=== PATIENT | male | born 1975 | race African-American/Black ===

== ENCOUNTER 2023-10-06 05:41 | Inpatient (IN) ==
[2023-10-06] MEDS: ACETAMINOPHEN 500 MG TAB PO STA (05:59)
[2023-10-06] MEDS: IBUPROFEN 800 MG TAB PO STA (06:00)
[2023-10-06] MEDS: FAMOTIDINE 20MG IV PUSH 20 MG/5 ML SYR IV STA (07:33)
[2023-10-06] MEDS: SODIUM CHLORIDE 0.9% 1,000 ML IV ONE ×2 (07:33→08:42)
[2023-10-06] MEDS: MoRPHine SULFATE 4 MG/ML 1 ML CARP\\VIAL IV STA (07:34)
[2023-10-06 07:39] LABS: Adenovirus PCR Not Detected (NotDetected); Bordetella parapertussis PCR Not Detected (NotDetected); Bordetella pertussis PCR Not Detected (NotDetected); Chlamydia pneumoniae PCR Not Detected (NotDetected); Coronavirus 229E PCR Not Detected (NotDetected); Coronavirus CoV-2 (COVID19)PCR Not Detected (NotDetected); Coronavirus HKU1 PCR Not Detected (NotDetected); Coronavirus NL63 PCR Not Detected (NotDetected); Coronavirus OC43PCR Not Detected (NotDetected); Human Metapneumovirus PCR Not Detected (NotDetected); Influenza A PCR Not Detected (NotDetected); Influenza B PCR Not Detected (NotDetected); Mycoplasma pneumoniae PCR Not Detected (NotDetected); Parainfluenza Virus 1 PCR Not Detected (NotDetected); Parainfluenza Virus 2 PCR Not Detected (NotDetected); Parainfluenza Virus 3 PCR Not Detected (NotDetected); Parainfluenza Virus 4 PCR Not Detected (NotDetected); Respiratory Syncytial VirusPCR Not Detected (NotDetected); Rhinovirus/Enterovirus PCR Not Detected (NotDetected)
--- NOTE | 2023-10-06 07:58 | Emergency Department Note ---
Impression & Plan Fever, Elevated procalcitonin ED Provider Note ED Provider Note NAME: DIXON CONCEPCION AGE:47 SEX: Male : 1975 ARRIVES VIA: Private vehicle INFORMANT: Patient ED PROVIDER(s): Sue Jones DO CHIEF COMPLAINT: Fevers HPI: This is a 47-year-old male presents emergency room due to concern for persistent fevers. Patient was seen and evaluated here yesterday with fever and complaint of dental pain and thought that was possibly the source. Patient does appear temporarily for his job. Patient had labs and imaging performed yesterday and was discharged on Augmentin. He states he has had a total of 3 doses of Augmentin by the time of his return today but was concerned due to persistent fevers. He states he did take Tylenol, did have a dose of Motrin additionally but was concerned due to persistent fevers. Patient does have a history of sarcoidosis but states it is in remission. No other recent sick contacts. Patient does have pain along the jaw bilaterally as he says he has "problems with his back teeth". He states chewing is painful additionally. No other URI symptoms. No vomiting or diarrhea prior to initiation of antibiotics, however he has had decreased appetite and mild diarrhea since starting the Augmentin. PAST MEDICAL HISTORY:See Below PAST SURGICAL HISTORY:See Below FAMILY HISTORY:See Below SOCIAL HISTORY:See Below HOME MEDICATIONS:See Below ALLERGIES:See Below VITALS:See Below PHYSICAL EXAMINATION: GENERAL: alert, well appearing, well nourished, no distress, non-toxic EYE EXAM: normal conjunctiva, PERRL and EOM's grossly intact OROPHARYNX: no exudate, no erythema, lips, buccal mucosa, and tongue normal and mucous membranes are moist NECK: supple, no nuchal rigidity, no adenopathy, non-tender LUNGS: Clear to auscultation. Normal chest wall mechanics, no w/r/r HEART: no murmurs, S1 normal and S2 normal ABDOMEN: abdomen soft, non-tender, normo-active bowel sounds, no masses, no rebound or guarding. SKIN: no rashes, petechiae, orbruising UPPER EXTREMITIES: upper extremities are grossly normal. FROM, nml pulses b/l. LOWER EXTREMITIES: No pitting edema. FROM, nml pulses b/l. NEURO EXAM: Normal sensorium, cranial nerves II-XII grossly intact, normal speech, no facial droop,nogross weakness of arms, no gross weakness of legs. Gross sensation intact. No ataxia. Vital Signs: reviewed and remarkable Differential Diagnosis: Dental abscess, osteomyelitis, failure of outpatient treatment, tickborne illness, dehydration, TYRELL, medication ADR, PE, viral syndrome, as well as others were considered MEDICAL DECISION MAKING: This is a 47-year-old male who presents to the emergency room due to concern for persistent fevers despite recent initiation of Augmentin for presumed dental infection. Patient well-appearing at bedside. He was noted to be febrile and tachycardic on arrival. He was given Tylenol and ibuprofen initially and a repeat respiratory viral swab performed. This was all done prior to my arrival and evaluation. After my exam at bedside, labs drawn and sent, IV established, patient given IV fluids. Repeat BioFire reassuring. Patient's labs do show elevated creatinine, this was present yesterday as well. Patient denies any prior history of kidney problems. Patient does have a history of sarcoid but states he has been in remission. Patient noted to have decreased leukocytosis today compared to yesterday however procalcitonin elevated. I did review pulmonary blood cultures from his initial visit which were negative at this point also. Patient was well-appearing throughout however given unusual symptoms, and recent travel, patient sent for CT angiography of the chest following elevated D-dimer. This was reassuring also. Case discussed with [facility] hospitalist team for additional evaluation and management given concern for fever elevation, increasing procalcitonin, and risks of other concurrent infection. Consultation(s): 1154: Discussed with Dr. Hughes, [facility] hospitalist team, for additional evaluation and management. ER Treatment Provided: See below Diagnostics Interpreted By Me: -Cardiac Monitoring: An order was placed for continuous cardiac monitoring. The monitor shows a rate of 90 with normal sinus rhythm. -Laboratory studies: As stated above and show below. -Imaging studies: CTA chest - no large PE Triage Nursing Note Reviewed Prior/Outside Records Reviewed -CT face reviewed Past Med/Surg History Medical History Sarcoidosis Social History Smoking Status: Never smoker Preferred Language: Sri Lankan Feels Safe at Home: Yes Allergies Allergies Allergy/AdvReac Type Severity Reaction Status Date / Time No Known Allergies Allergy Unverified 10/05/23 03:19 Home Meds Home Medications Medication Instructions Recorded Confirmed Motrin See Rx Instructions .Route 10/06/23 10/06/23 .COMPLEX PRN pain/fever Tylenol See Rx Instructions .Route 10/06/23 10/06/23 .COMPLEX PRN pain/fever carvedilol 25 mg tablet 25 mg PO BID 10/06/23 10/06/23 ergocalciferol (vitamin D2) 1 cap PO WK 10/06/23 10/06/23 fenofibrate 54 mg tablet 54 mg PO BID 10/06/23 10/06/23 hydralazine 25 mg tablet 25 mg PO TID 10/06/23 10/06/23 nifedipine 90 mg tablet,extended 90 mg PO DAILY 10/06/23 10/06/23 release 24 hr potassium citrate 10 mEq (1,080 1,080 mg PO BID 10/06/23 10/06/23 mg) tablet,extended release Previous Rx's Medication Instructions Recorded amoxicillin 875 mg-potassium 1 tab PO BID 7 days #14 tabs 10/05/23 clavulanate 125 mg tablet Results & Data (ED) Vital Signs Vital Signs - 24 hr 10/06/23 05:45 10/06/23 07:50 10/06/23 07:51 Temperature 39.5 C H 37.6 C Temperature Source Oral Oral Pulse Rate 113 H Pulse Rate [Left] 92 H Respiratory Rate 22 18 Respiratory Effort / Characteristics Non-Labored Respiratory Depth Normal Normal Respiratory Pattern Regular Blood Pressure 130/85 Blood Pressure [Left Arm] 122/70 Blood Pressure Mean 100 Blood Pressure Mean [Left Arm] 87 Blood Pressure Position Sitting Pulse Oximetry 94 94 Oxygen Delivery Method Room Air Room Air Sepsis Recent Fever Within 48 Hours Yes Sepsis New/Unexplained Change in Mental Status N/A Sepsis Action Taken by Nursing No Action Required 10/06/23 09:00 10/06/23 11:55 Temperature Temperature Source Pulse Rate Pulse Rate [Left] 95 H 89 Respiratory Rate 18 16 Respiratory Effort / Characteristics Respiratory Depth Respiratory Pattern Blood Pressure Blood Pressure [Left Arm] 132/76 109/76 Blood Pressure Mean Blood Pressure Mean [Left Arm] 94 87 Blood Pressure Position Pulse Oximetry 96 99 Oxygen Delivery Method Room Air Room Air Sepsis Recent Fever Within 48 Hours Sepsis New/Unexplained Change in Mental Status Sepsis Action Taken by Nursing Laboratory Data 10/06/23 07:31 10/06/23 07:31 Lab Results 10/06/23 10/06/23 Range/Units 06:03 07:31 WBC 11.49 H (4.8-10.8) K/ul RBC 3.72 L (4.70-6.10) M/uL Hgb 11.3 L (14.0-18.0) g/dl Hct 32.6 L (42.0-52.0) % MCV 87.6 (80.0-100.0) fL MCH 30.4 (25.0-34.0) pg MCHC 34.7 (32.0-36.0) g/dL RDW Std Deviation 46.8 H (36.4-46.3) fL RDW Coeff of Monica 14.6 H (11.5-14.5) % Plt Count 219 (130-400) K/uL MPV 10.5 (9.4-12.4) fL Immature Gran % (Auto) 1.0 % Neut % (Auto) 86.3 % Lymph % (Auto) 3.7 % [place] % (Auto) 8.2 % Eos % (Auto) 0.6 % Baso % (Auto) 0.2 % Neut # (Auto) 9.92 H (1.40-6.50) K/uL Lymph # (Auto) 0.42 L (1.20-3.40) K/uL [place] # (Auto) 0.94 H (0.11-0.59) K/uL Eos # (Auto) 0.07 (0.00-0.50) K/uL Baso # (Auto) 0.02 (0.00-0.20) K/uL Immature Gran # (Auto) 0.12 (0.01-0.20) K/uL D-Dimer 2410 H* (0-500) ug/L FEU Sodium 133 L (136-145) mmol/L Potassium 3.3 L (3.5-5.1) mmol/L Chloride 99 (98-107) mmol/L Carbon Dioxide 21 (21-32) mmol/L Anion Gap 13 H (3-11) BUN 15 (6-23) mg/dl Creatinine 1.79 H (0.6-1.4) mg/dl Est Cr Clr Drug Dosing 67.0 ml/min Est GFR ( Amer) 51.2 ml/min Est GFR (Non-Af Amer) 44.1 ml/min BUN/Creatinine Ratio 8.4 L (10-20) Glucose 130 H (70-99(Fasting)) mg/dl Calcium 9.4 (8.6-10.3) mg/dl Total Bilirubin 0.5 (0.2-1.0) mg/dl AST 83 H (13-39) U/L ALT 52 (7-52) U/L Alkaline Phosphatase 53 (34-104) U/L Total Protein 7.7 (6.0-8.3) gm/dl Albumin 3.7 (3.4-5.0) gm/dl Globulin 4.0 (2.5-4.0) gm/dl Albumin/Globulin Ratio 0.9 (0.9-2) Procalcitonin 3.41 H (0-0.5) ng/ml Adenovirus (PCR) Not Detected (NotDetected) Anaplasma Smear See Comment Babesia Smear See Comment B. pertussis DNA (PCR) Not Detected (NotDetected) B.parapertussis DNA PCR Not Detected (NotDetected) C. pneumoniae DNA (PCR) Not Detected (NotDetected) Coronavirus OC43 (PCR) Not Detected (NotDetected) Coronavirus HKU1 (PCR) Not Detected (NotDetected) Coronavirus 229E (PCR) Not Detected (NotDetected) SARS-CoV-2 (PCR) Not Detected (NotDetected) Coronavirus NL63 (PCR) Not Detected (NotDetected) Human Metapneumovir PCR Not Detected (NotDetected) Influenza Type A (PCR) Not Detected (NotDetected) Influenza Type B (PCR) Not Detected (NotDetected) M. pneumoniae (PCR) Not Detected (NotDetected) Parainfluenza 1 (PCR) Not Detected (NotDetected) Parainfluenza 2 (PCR) Not Detected (NotDetected) Parainfluenza 3 (PCR) Not Detected (NotDetected) Parainfluenza 4 (PCR) Not Detected (NotDetected) RSV (PCR) Not Detected (NotDetected) Entero/Rhino (PCR) Not Detected (NotDetected) Administered Medications Discontinued Medications Acetaminophen (Acetaminophen 500 Mg Tab) 1,000 mg PO NOW STA Stop: 10/06/23 05:57 Last Admin: 10/06/23 05:59 Dose: 1,000 mg Documented By: IDD Famotidine (Pepcid 20mg Iv Push) 20 mg in 5 mls @ 2.5 mls/min IV NOW STA Stop: 10/06/23 07:12 Last Admin: 10/06/23 07:33 Dose: 2.5 mls/min Documented By: AM Sodium Chloride (Nss) 1,000 mls @ 999 mls/hr IV .Q1H1M ONE Stop: 10/06/23 08:11 Last Infusion: 10/06/23 08:35 Dose: Infused Documented By: Admin: 10/06/23 07:33 Dose: 999 mls/hr Documented By: AM Sodium Chloride (Nss) 1,000 mls @ 999 mls/hr IV .Q1H1M ONE Stop: 10/06/23 09:35 Last Infusion: 10/06/23 10:00 Dose: Infused Documented By: Admin: 10/06/23 08:42 Dose: 999 mls/hr Documented By: AM Ibuprofen (Ibuprofen 800 Mg Tab) 800 mg PO NOW STA Stop: 10/06/23 05:57 Last Admin: 10/06/23 06:00 Dose: 800 mg Documented By: IDD Ioversol (Optiray 320 125ml) 117 ml IV ONCE ONE Stop: 10/06/23 10:32 Last Admin: 10/06/23 10:32 Dose: 117 ml Documented By: EDK Morphine Sulfate (Morphine Sulfate 4 Mg/Ml 1 Ml Carp\\Vial) 4 mg IV NOW STA Stop: 10/06/23 07:14 Last Admin: 10/06/23 07:34 Dose: 4 mg Documented By: AM Potassium Chloride (Potassium Chloride Crtab 20 Meq Tabcr) 40 meq PO NOW STA Stop: 10/06/23 12:51 Last Admin: 10/06/23 13:46 Dose: 40 meq Documented By: HEBER Imaging Data Radiologist's Impression: Chest CTA 10/06/23 09:55 CT angio chest PE protocol CLINICAL HISTORY: PE TECHNIQUE: Multidetector row helical CT of the chest was performed with angiographic protocol. Coronal and sagittal reformations were obtained. Coronal and sagittal MIPS were obtained from the axial data set and were submitted for review. Automated dose lowering techniques and/or adjustment according to patient size were utilized for this exam. CT DOSE: 853.01 mGy.cm Comparison: Comparison is made to CT chest 10/05/2023 FINDINGS: Lungs and pleura: Normal. Heart and pericardium: Heart size is normal. No pericardial effusion. Vessels: No evidence of pulmonary embolism. Mediastinum and marcia: Subcentimeter lymph nodes are seen. Chest wall and lower neck: Subcentimeter axillary lymph nodes noted. Abdomen: Unremarkable. Bones: Unremarkable. IMPRESSION: No acute abnormality and in particular no evidence of pulmonary embolus. Axillary lymph nodes are nonspecific and may be reactive. ACT 112: Negative or not required by law. Electronically signed by: See Serna M.D. 10/06/2023 11:00 AM Discharge Plan Visit Data Chief Complaint: Fever Stated Complaint: FEVER ED Provider: Sue Jones Discharge Problem: Fever, Elevated procalcitonin Patient Disposition: Admitted As Inpatient Discharge Instructions Interventions: ED Discharge Assessment Last Done: 10/06/23 14:08
[2023-10-06 08:11] LABS: Basophils # (auto) 0.02 K/uL (0.00-0.20); Basophils % (auto) 0.2 %; Eosinophils # (auto) 0.07 K/uL (0.00-0.50); Eosinophils % (auto) 0.6 %; Hematocrit (blood only) 32.6 % (42.0-52.0); Hemoglobin 11.3 g/dl (14.0-18.0); Immature Granulocytes # (auto) 0.12 K/uL (0.01-0.20); Lymphocytes # (auto) 0.42 K/uL (1.20-3.40); Lymphocytes % (auto) 3.7 %; Mean Corpuscular Hemoglobin 30.4 pg (25.0-34.0); Mean Corpuscular Hgb Conc 34.7 g/dL (32.0-36.0); Mean Corpuscular Volume 87.6 fL (80.0-100.0); Mean Platelet Volume 10.5 fL (9.4-12.4); Monocytes # (auto) 0.94 K/uL (0.11-0.59); Monocytes % (auto) 8.2 %; Neutrophils # (auto) 9.92 K/uL (1.40-6.50); Neutrophils % (auto) 86.3 %; Platelet Count 219 K/uL (130-400); RDW Coefficient of Variation 14.6 % (11.5-14.5); RDW Standard Deviation 46.8 fL (36.4-46.3); Red Blood Count 3.72 M/uL (4.70-6.10); White Blood Count 11.49 K/ul (4.8-10.8)
[2023-10-06 08:25] LABS: Albumin Globulin Ratio 0.9 (0.9-2); Albumin Level 3.7 gm/dl (3.4-5.0); BUN Creatinine Ratio 8.4 (10-20); Bilirubin,Total 0.5 mg/dl (0.2-1.0); Calcium 9.4 mg/dl (8.6-10.3); Est GFR (African American) 51.2 ml/min; Est GFR (Non-African American) 44.1 ml/min; Potassium 3.3 mmol/L (3.5-5.1); Total Protein 7.7 gm/dl (6.0-8.3)
[2023-10-06 10:04] LABS: D Dimer 2410 ug/L FEU (0-500)
[2023-10-06] MEDS: OPTIRAY 320 125ml IV ONE (10:32)
--- NOTE | 2023-10-06 11:01 | CT Scan Report ---
CT angio chest PE protocol CLINICAL HISTORY: PE TECHNIQUE: Multidetector row helical CT of the chest was performed with angiographic protocol. Archer l and sagittal reformations were obtained. Coronal and sagittal MIPS were obtained from the axial jeny a set and were submitted for review. Automated dose lowering techniques and/or adjustment according to patient size were utilized for this exam. CT DOSE: 853.01 mGy.cm Comparison: Comparison is made to CT chest 10/05/2023 FINDINGS: Lungs and pleura: Normal. Heart and pericardium: Heart size is normal. No pericardial effusion. Vessels: No evidence of pulmonary embolism. Mediastinum and marcia: Subcentimeter lymph nodes are seen. Chest wall and lower neck: Subcentimeter axillary lymph nodes noted. Abdomen: Unremarkable. Bones: Unremarkable. IMPRESSION: No acute abnormality and in particular no evidence of pulmonary embolus. Axillary lymph nodes are non specific and may be reactive. ACT 112: Negative or not required by law. Electronically signed by: See Serna M.D. 10/06/2023 11:00 AM
--- NOTE | 2023-10-06 12:08 | History & Physical Report ---
Date of Service October 06, 2023 Assessment & Plan (1) Fever: Plan: Patient has had significantly elevated fevers; good historian and tracks his fever curve. By history he clearly has had rigors over the last 36 hours and continues to have fevers [place] [address].5 by home thermometer. Bio fire is negative Has some chronic dental pain and dental disease. Endorses a dry nonproductive cough about 1 week. Bio fire is negative. Denies GI, symptoms. Patient has not clinically improved on outpatient Augmentin. His leukocytosis has down trended; however procalcitonin has risen Patient has a history of sarcoid reportedly in remission. Sarcoid is not a ssociated with elevated Pro-Donald and his procalcitonin continues to rise now 3.41; and does not show signs of hilar adenopathy on CT Cell differential is neutrophilic predominant CTface shows dental decay and dental caries with periodontal osteolysis with a fractured posterior molar although no abscess. May be due to dental disease however he is not improving on Augmentin although has been on less than 36 hours of treatment. Patient does have occupational risk for fungal and atypical exposures. 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 He is temporarily here from [place] for a few months. Repeat cultures, Fungitell, fungal cultures ordered Mildly elevated AST with no prior liver disease. Tickborne panel including Anaplasma ordered Will continue on Rocephin/Flagyl empirically pending additional results Follow fever curve Tylenol as needed for fever. Will avoid NSAIDs in the setting of TYRELL Patient does have multiple ulcerative lesions on the right inner cheek and tip of the tongue. Has never had cold sores before.Could be aphthous ulcers however high fevers could also be indicative of primary HSV infection although atypical to have leukocytosis/significantly elevated procalcitonin with this. Viral swab sent (2) Dental decay: Plan: As noted above (3) Hypertension: Plan: Continue carvedilol 25 mg twice daily, hydralazine 25 mg 3 times daily, nifedipine 90 mg daily. (4) Hyperlipidemia: Plan: Continue fenofibrate (5) Sarcoidosis: Plan: CTA without evidence of PE. Some axillary adenopathy is present? Reactive Patient does not show evidence of hilar adenopathy. Denies skin swelling, joint swelling/nodules CTA does not show evidence of pulmonary sarcoidosis. Osteolysis of the jaw seen on CT could be related to this; however elevated procalcitonin is not associated with sarcoid Trend CBC, CMP. EDWARD level ordered. EKG pending (6) TYRELL (acute kidney injury): Plan: Patient also with an TYRELL of 1.79, he reports he has had an TYRELL in the past but at his last check his creatinine was normal Plan DVT PPx: Heparin Diet: CODE STATUS: Full History of Present Illness Primary Care Provider: NO PCP Renato is seen at the bedside He reprots he is hwere for work temporarily from [place] Symptoms started with 'just feeling shaky and weak' and more fatigued than normal like he hadnt slept even though he had. Was in the care and 'was just burning up, sweating, soaking rags from wiping my head and face.' and then suddenly felt absolutely freezing and was shaking uncontrollably and big muscle shaking movements, not like shivering but bigger (rigors). Alternating soaking sweats and shivering with fevers and could not sleep. Came to the ER yesterday and was found to have some dental caries on CT, has a history of a cracked tooth on the lower R side, started on Augmentin and was d/lakshmi home. Continue to have documented fevers 100-104*F overnight intermittently. Took his first dose of Augmentin yesterday around 5pm. Recieved first dose of abx while in the ER yesterday morning. Took last dose 9am this morning Still feeling poorly. Alternating tylenol 325mg every few hours with ibuprofen 400mg every few hours. Seems to help, but continues to have fevers. This AM severe shaking chills started again, came back to the ER 99.6-104.5 higher in AM Endorses a little blurry vision with high fever that improves between fever spikes. NO headache, but some head pressure radiation when coughing He endorses a 'slight off and on cough'. This is new in the last week. No sputum production. Denies noticable dyspnea, sometimes a little fatigued/SoB trying to work. Endorses one transient episode of e pitgastric pain but not chest pain. Has been there 3-4. Not worse with exertion. Back pain. LLQ back pain L sided. Feels a lump at L1-L3. Recently also with a second pain going down his leg and toe is now numb. No abdominal pain. Mild nausea with fevers twice, no vomiting but did gag once or twice when coughing. Left leg numbness/tingling worse with piriformis syndrome. No other numbness/tingling other mary some slight intermittent tingling on the dorsal L hand for ~3-4months worse when sleep. Denies rash No sensinsitivity to lighth or sound. 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 Generally coming for an assessment once its found No international travel No history of immune suppression or immune problems. Endorses preDM, sarcoidosis, sleep apnea, HTN Meds: carvedilol 25mg BID, hydralazine 25mg TID, nifedipine 90mg once daily, potassiumcitrate 10meq twice daily, fenofibrate 54mg 2 tablets daily, and ergocalciferol weekly Father had heart disease, DM No tobacco products or vaping. ETOH 3 beers a day.everal consequtive etoh free days this past month, no etoh withdrawal. No recreational drugs NKDA Full Code. Surrogate DM sister Shilpa Allergies Allergy/AdvReac Type Severity Reaction Status Date / Time No Known Allergies Allergy Unverified 10/05/23 03:19 Home Medications Medication Instructions Recorded Confirmed Type amoxicillin 875 mg-potassium 1 tab PO BID 7 days #14 tabs 10/05/23 10/06/23 Rx clavulanate 125 mg tablet Motrin See Rx Instructions .Route 10/06/23 10/06/23 History .COMPLEX PRN pain/fever Tylenol See Rx Instructions .Route 10/06/23 10/06/23 History .COMPLEX PRN pain/fever carvedilol 25 mg tablet 25 mg PO BID 10/06/23 10/06/23 History ergocalciferol (vitamin D2) 1 cap PO WK 10/06/23 10/06/23 History fenofibrate 54 mg tablet 54 mg PO BID 10/06/23 10/06/23 History hydralazine 25 mg tablet 25 mg PO TID 10/06/23 10/06/23 History nifedipine 90 mg tablet,extended 90 mg PO DAILY 10/06/23 10/06/23 History release 24 hr potassium citrate 10 mEq (1,080 1,080 mg PO BID 10/06/23 10/06/23 History mg) tablet,extended release Past Med/Surg History Medical History Sarcoidosis Social History Smoking Status: Never smoker Preferred Language: Kyrgyz Feels Safe at Home: Yes Physical Exam Physical Exam: General: A&Ox3. NAD. Cooperative. HEENT: Atraumatic, normocephalic. Vision and hearing grossly intact. Pupils equal and reactive to light and accommodation. No photo/phono sensitivity. No nuchal rigidity is present. Neck flexion/extension is with full range of motion without stiffness. Right buccal membrane with multiple small ulcerative lesions, few small ulcerative lesions on the right tip of the tongue Pulm: CTAB A&P. -wheezes, -rales, -rhonchi. Symmetrical chest rise. No increased work of breathing. No respiratory distress. Cardiac: RRR, -mrg. Radial pulses intact and symmetrical. Abdominal: Nontender, nondistended, soft. BS present. Extremities: Pediatric Neuropsychologist strength, elbow flexion, hip flexion, ankle dorsiflexion/plantarflexion 5/5 bilaterally without deficit. Sensation of soft touch is intact in hands and feet bilaterally without asymmetry. Back: No midline spinal tenderness. Does have some L1-L3 right paraspinal musculature stiffness. Patient also endorses that palpation of the R piriformis causes numbness and tingling to shoot down his right leg. Results & Data Results & Data Vital Signs (Past 12 Hours) Vital Signs Temp Pulse Pulse Resp BP BP Pulse Ox 10/06/23 11:55 89 16 109/76 99 10/06/23 09:00 95 H 18 132/76 96 10/06/23 07:51 92 H 18 122/70 94 10/06/23 07:50 37.6 C 10/06/23 05:45 39.5 C H 113 H 22 130/85 94 O2 Del Method 10/06/23 11:55 Room Air 10/06/23 09:00 Room Air 10/06/23 07:51 Room Air 10/06/23 07:50 10/06/23 05:45 Room Air PG Care Time/CCT Total # of Minutes Spent Total Time Spent with Patient: Total time spent is greater than 50% in coordination of care (as documented) at patient's floor/unit and/or counseling patient: Coding Level of Care Code 89232 INT INP/OBS CARE 3/75MIN Diagnoses Fever R50.9 Dental decay K02.9 Hypertension I10 Hyperlipidemia E78.5 Sarcoidosis D86.9 TYRELL (acute kidney injury) N17.9
[2023-10-06] MEDS: POTASSIUM CHLORIDE CRTAB 20 MEQ TABCR PO STA (13:46)
[2023-10-06] MEDS ORDERED: ONDANSETRON INJ 2 MG/ML 2 ML VIAL IV PRN (14:28)
[2023-10-06] MEDS ORDERED: POLYETHYLENE (MIRALAX) 17 GM PACK PO PRN (14:28)
[2023-10-06] MEDS: ACETAMINOPHEN 325 MG TAB PO PRN (15:13)
[2023-10-06] MEDS: cefTRIAXone SODIUM 2,000 MG/50 ML BAG IV SCH (16:29)
[2023-10-06] MEDS: metroNIDAZOLE 500 MG/100 ML BAG IV SCH (17:03)
[2023-10-06] MEDS: HEPARIN SOD 5,000 UNIT/0.5 ML VIAL SQ SCH (20:33)
[2023-10-06 21:43] LABS: Appearance Urine Clear (Clear); Bacteria Urine Automated None Seen (None Seen); Bilirubin Urine Negative (Negative); Blood Urine 1+ (Negative); Cast Urine Automated 0-2 /lpf (0-2); Color Urine Yellow; Epithelial Cell Urine Auto 0-2 /hpf (0-2); Glucose Urine UA 3+ (Negative); Ketones Urine Trace (Negative); Leukocyte Esterase Urine Negative (Negative); Nitrite Urine Negative (Negative); Protein Urine 2+ (Negative); Specific Gravity Urine 1.041 (1.000-1.030); Urobilinogen Urine Negative (Negative); WBC Urine Automated 0-5 /hpf (0-5); pH Urine 6.5 (4.5-7.5)
[2023-10-06] MEDS: carvediloL 25 MG TAB PO SCH (22:04)
[2023-10-06] MEDS: hydrALAZINE HCL 25 MG TAB PO SCH (22:04)
[2023-10-06] MEDS: DOXYCYCLINE HYCLATE 100 MG in DEXTROSE 5% MINI-B 100 ML IV SCH (22:28)
[2023-10-07 07:40] LABS: C Reactive Protein 27.53 mg/dl (0-0.5)
[2023-10-07 08:32] LABS: BUN Creatinine Ratio 6.9 (10-20); Calcium 8.9 mg/dl (8.6-10.3); Creatinine Clr Calc Pharmacy 68.9 ml/min; Est GFR (African American) 52.9 ml/min; Est GFR (Non-African American) 45.7 ml/min; Magnesium 1.9 mg/dl (1.7-2.4); Potassium 3.4 mmol/L (3.5-5.1)
[2023-10-07] MEDS: NIFEdipine EXTENDED REL 30 MG TABCR PO SCH (08:36)
[2023-10-07 11:03] LABS: Hematocrit (blood only) 34.3 % (42.0-52.0); Hemoglobin 11.8 g/dl (14.0-18.0); Mean Corpuscular Hemoglobin 29.9 pg (25.0-34.0); Mean Corpuscular Hgb Conc 34.4 g/dL (32.0-36.0); Mean Corpuscular Volume 86.8 fL (80.0-100.0); Mean Platelet Volume 9.9 fL (9.4-12.4); Platelet Count 233 K/uL (130-400); RDW Coefficient of Variation 14.6 % (11.5-14.5); Red Blood Count 3.95 M/uL (4.70-6.10); White Blood Count 8.76 K/ul (4.8-10.8)
[2023-10-07] MEDS: POTASSIUM CHLORIDE CRTAB 20 MEQ TABCR PO STA (11:21)
--- NOTE | 2023-10-07 11:21 | Hospitalist Progress Note ---
Date of Service October 07, 2023 Assessment & Plan (1) Gingivostomatitis: Plan: Herpes, coxsackie virus, adenovirus are 3 typical viruses that cause what he has. The latter 2 viruses do not have any specific treatment. While awaiting HSV PCR testing from the mouth will start acyclovir 400mg TID. Add magic mouthwash q6h swish/spit. Start peridex mouth solution BID, swish/spit. Unfortunately this problem can last 7-10 days or more in some cases. Fevers can sometimes last a prolonged period of time if herpes or coxsackie are present. (2) Fever: Plan: Respiratory BioFire negative Blood cx's from 10/04 and 10/05 remain negative CTA chest without pneumonia U/a not suspicious for UTI Lyme screen negative Anaplasmosis & Babesia smears negative CTface shows dental decay and dental caries with periodontal osteolysis with a fractured posterior molar although no abscess. Remains on IV antibiotics. Change rocephin/flagyl to Unasyn IV. Consider consulting Dr Posey. Patient does have occupational risk for fungal and atypical exposures. 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 He is temporarily here from [place] for a few months. Fungal blood cx was dispatched; fungitell also sent by admitting MD. Does have #1 on physical exam - see #1 for more information. Could fevers be non-infectious (ie - sarcoid)? Does have lymphadenopathy in the axillary region & retroperitoneal on imaging. Consider rheum consultation. Follow cultures Change rocephin/flagyl to unasyn for his teeth Cont doxy for empiric tick-borne coverage (3) Dental decay: Plan: Consider Dr Posey consultation while here (4) Hypertension: Plan: Continue carvedilol 25 mg twice daily, hydralazine 25 mg 3 times daily, nifedipine 90 mg daily (5) Hyperlipidemia: Plan: Continue fenofibrate (6) Sarcoidosis: Plan: CTA without evidence of PE, pneumonia, or hilar lymphadenopathy. Some axillary adenopathy is present - subcm per radiology - Reactive? sarcoid? other? Send 1,25-OH vit D level Again Consider rheum consultation (7) TYRELL (acute kidney injury): Plan: patient with CKD Cr 1.3 in fall 2022, then 1.5 05/19, then 1.7 about 1 month ago progressively worsening renal function etiology? HTN nephrosclerosis? due to active sarcoid? other? hydrate overnight, repeat BMP am CT a/p no contrast - r/o kidney stones, other renal pathology (8) Hypokalemia: Plan: replace PO/IV repeat K in am (9) Chronic radicular low back pain: Plan: left leg L5 or S1 nerve root consider imaging if fevers persist to r/o spinal infection (10) Hyponatremia: Plan: mild likely due to volume depletion/insensible losses in setting of fevers hydrate with isotonic fluids repeat BMP am Plan DVT PPx: Heparin Admission and Anticipated Discharge Date Admission Date: October 06, 2023 Subjective patient continues with high fevers these have been present for several days main complaint is that of difficulty eating/drinking because of numerous mouth & tongue sores he also has several teeth that are broken/decayed/infected denies any rashes did have sarcoid in the early while living in [place] was treated with steroids then, and ultimately went into remission had pulmonary symptoms during his time of treatment, as well as diffuse subcutaneous nodules he denies joint pain/arthralgias denies myalgias he has chronic left-sided low back pain with radicular pain down the entire left leg to the foot the left leg from the left knee down to foot has numbness/tingling no change in his chronic low back pain [facility] labs - early fall 2022 - Cr 1.3 04/2023 - Cr 1.31 August 2023 - Cr 1.7 he had x-rays of his back in August 2023 - DJD seen he mentions vague abdominal pain that has occurred a few times since being sick but no emesis some diarrhea no obvious sick contacts he travels for work and has 2 more months in [place] has been here a few weeks Review of Systems Review of Systems: gen - poor appetite, fevers cv - no chest pain pulm - no cough or dyspnea GI - no vomiting - no dysuria skin - no rashes neuro - no headache Physical Exam Physical Exam: gen - WD, WN, obese, nontoxic, pleasant mouth - numerous oral ulcers of buccal mucosa, on tongue, and on undersurface of bottom lip, MMM; very poor dentition with evidence of periodontal disease, cracked teeth, etc neck - shotty lymphadenopathy b/l, supple heart - RRR, s1 s2, no murmur lungs - CTA b/l abd - soft, no HSM, BS+, NT, ND ext - no edema, pulses 2+ b/l skin - no rash - nothing involving palms/soles neuro - strength 5/5 x 4 exts, DTRs patella 2+ b/l psych - a/o x 3 Results & Data Results & Data Vital Signs (Past 12 Hours) Vital Signs Temp Pulse Resp BP Pulse Ox O2 Del Method 10/07/23 08:38 101 H 18 116/71 96 Room Air 10/07/23 07:16 36.5 C 97 H 16 122/72 96 Room Air 10/07/23 07:15 Room Air 10/07/23 05:36 37.4 C 10/07/23 01:33 38.0 C H Laboratory Results Laboratory Results - last 24 hr 10/06/23 10/06/23 10/06/23 07:31 13:19 13:26 WBC RBC Hgb Hct MCV MCH MCHC RDW Std Deviation RDW Coeff of Monica Plt Count MPV Sodium Potassium Chloride Carbon Dioxide Anion Gap BUN Creatinine Est Cr Clr Drug Dosing Est GFR ( Amer) Est GFR (Non-Af Amer) BUN/Creatinine Ratio Glucose Lactate 1.1 Calcium Magnesium AST Total Creatine Kinase C-Reactive Protein 33.36 H Procalcitonin Urine Color Urine Appearance Urine pH Ur Specific [place] Urine Protein Urine Glucose (UA) Urine Ketones Urine Blood Urine Nitrite Urine Bilirubin Urine Urobilinogen Ur Leukocyte Esterase Urine WBC (Auto) Urine RBC (Auto) U Hyaline Cast (Auto) U Epithel Cells (Auto) Urine Bacteria (Auto) Anaplasma Smear See Comment Babesia Smear See Comment Babesia microti DNA PCR Pending Lyme Disease Screen Negative Herpes Virus Source Pending HSV I DNA PCR Pending HSV II DNA PCR Pending Beta-(1,3)-D-Glucan Pending B-(1,3)-D-Glucan Intrp Pending 10/06/23 10/07/23 10/07/23 20:20 06:43 10:51 WBC 8.76 RBC 3.95 L Hgb 11.8 L Hct 34.3 L MCV 86.8 MCH 29.9 MCHC 34.4 RDW Std Deviation 47.0 H RDW Coeff of Monica 14.6 H Plt Count 233 MPV 9.9 Sodium 133 L Potassium 3.4 L Chloride 101 Carbon Dioxide 18 L Anion Gap 14 H BUN 12 Creatinine 1.74 H Est Cr Clr Drug Dosing 68.9 Est GFR ( Amer) 52.9 Est GFR (Non-Af Amer) 45.7 BUN/Creatinine Ratio 6.9 L Glucose 101 H Lactate Calcium 8.9 Magnesium 1.9 AST 92 H Total Creatine Kinase 341 H C-Reactive Protein 27.53 H Procalcitonin 2.90 H Urine Color Yellow Urine Appearance Clear Urine pH 6.5 Ur Specific [place] 1.041 H Urine Protein 2+ H Urine Glucose (UA) 3+ H Urine Ketones Trace H Urine Blood 1+ H Urine Nitrite Negative Urine Bilirubin Negative Urine Urobilinogen Negative Ur Leukocyte Esterase Negative Urine WBC (Auto) 0-5 Urine RBC (Auto) 6-10 H U Hyaline Cast (Auto) 0-2 U Epithel Cells (Auto) 0-2 Urine Bacteria (Auto) None Seen Anaplasma Smear Babesia Smear Babesia microti DNA PCR Lyme Disease Screen Herpes Virus Source HSV I DNA PCR HSV II DNA PCR Beta-(1,3)-D-Glucan B-(1,3)-D-Glucan Intrp PG Care Time/CCT Total # of Minutes Spent Total Time Spent with Patient: Total time spent is greater than 50% in coordination of care (as documented) at patient's floor/unit and/or counseling patient: Coding Level of Care Code 83115 SUB INP/OBS CARE 3/50MIN Diagnoses Gingivostomatitis K05.10 Fever R50.9 Dental decay K02.9 Hypertension I10 Hyperlipidemia E78.5 Sarcoidosis D86.9 TYRELL (acute kidney injury) N17.9 Hypokalemia E87.6 Chronic radicular low back pain M54.16; G89.29 Hyponatremia E87.1
[2023-10-07 11:31] LABS: Basophils # (auto) 0.04 K/uL (0.00-0.20); Basophils % (auto) 0.5 %; Eosinophils # (auto) 0.21 K/uL (0.00-0.50); Eosinophils % (auto) 2.4 %; Immature Granulocytes # (auto) 0.07 K/uL (0.01-0.20); Immature Granulocytes % (auto) 0.8 %; Lymphocytes # (auto) 0.97 K/uL (1.20-3.40); Lymphocytes % (auto) 11.1 %; Monocytes # (auto) 0.87 K/uL (0.11-0.59); Monocytes % (auto) 9.9 %; Neutrophils % (auto) 75.3 %; Toxic Vacuolation 2+
[2023-10-07] MEDS: PANTOprazole 40 MG TAB PO SCH (12:13)
[2023-10-07] MEDS: NSS + 20MEQ KCL 20 MEQ/1,000 ML BAG IV SCH (12:15)
[2023-10-07] MEDS: FIRST - Mouthwash BLM 119 ML PO SCH (12:15)
[2023-10-07] MEDS: CHLORHEXIDINE GLUCONATE 0.12% 480 ML MT SCH (12:16)
[2023-10-07] MEDS: ACYCLOVIR 400 MG TAB PO SCH (14:33)
--- NOTE | 2023-10-07 20:15 | CT Scan Report ---
CT abd pelvis wo con CLINICAL HISTORY: abd pain, elevated Cr; eval stone, etc TECHNIQUE: Helical axial images of the abdomen and pelvis were obtained. Automated dose lowering tech niques and/or adjustment according to patient size were utilized for this exam. This exam was perfor med without intravenous contrast. CT DOSE: 1422.96 mGy.cm COMPARISON: None available at the time of this dictation. FINDINGS: Lower chest: No acute abnormality. Liver: Hepatic steatosis is noted. Gallbladder and biliary tree: No calcified gallstones. Normal caliber wall. No intra- or extrahepatic biliary ductal dilation. Pancreas: Unremarkable, no focal lesions. Spleen: Unremarkable. Adrenals: Thickening of the left adrenal gland is seen. Kidneys and ureters: Unremarkable. Bladder: Unremarkable. Reproductive organs: Unremarkable. Bowel: The appendix is normal. Lymph nodes Retroperitoneal: Subcentimeter lymph nodes are noted. Pelvic: Unremarkable. Mesenteric: Subcentimeter lymph nodes are noted. Peritoneum: Normal. Vessels: Unremarkable. Abdominal wall: Unremarkable. Bones: Degenerative changes in the visualized spine. IMPRESSION: No acute abnormalities. There are subcentimeter lymph nodes in the retroperitoneum which may be react po. ACT 112: Negative or not required by law. Electronically signed by: See Serna M.D. 10/07/2023 8:13 PM
[2023-10-08 06:56] LABS: Hematocrit (blood only) 31.2 % (42.0-52.0); Hemoglobin 10.7 g/dl (14.0-18.0); Mean Corpuscular Hemoglobin 29.6 pg (25.0-34.0); Mean Corpuscular Hgb Conc 34.3 g/dL (32.0-36.0); Mean Corpuscular Volume 86.4 fL (80.0-100.0); Mean Platelet Volume 10.5 fL (9.4-12.4); Platelet Count 248 K/uL (130-400); RDW Coefficient of Variation 14.6 % (11.5-14.5); RDW Standard Deviation 46.7 fL (36.4-46.3); Red Blood Count 3.61 M/uL (4.70-6.10); White Blood Count 8.69 K/ul (4.8-10.8)
[2023-10-08 07:17] LABS: Basophils # (auto) 0.03 K/uL (0.00-0.20); Basophils % (auto) 0.3 %; Eosinophils # (auto) 0.28 K/uL (0.00-0.50); Eosinophils % (auto) 3.2 %; Immature Granulocytes # (auto) 0.09 K/uL (0.01-0.20); Lymphocytes # (auto) 1.65 K/uL (1.20-3.40); Monocytes # (auto) 1.16 K/uL (0.11-0.59); Monocytes % (auto) 13.3 %; Neutrophils # (auto) 5.48 K/uL (1.40-6.50); Neutrophils % (auto) 63.2 %
[2023-10-08 07:51] LABS: C Reactive Protein 23.64 mg/dl (0-0.5)
[2023-10-08 07:56] LABS: Albumin Globulin Ratio 0.9 (0.9-2); Albumin Level 3.4 gm/dl (3.4-5.0); BUN Creatinine Ratio 7.2 (10-20); Bilirubin,Total 0.4 mg/dl (0.2-1.0); Calcium 8.9 mg/dl (8.6-10.3); Creatinine Clr Calc Pharmacy 78.3 ml/min; Est GFR (African American) 61.8 ml/min; Est GFR (Non-African American) 53.4 ml/min; Potassium 3.4 mmol/L (3.5-5.1); Total Protein 7.4 gm/dl (6.0-8.3)
[2023-10-08] MEDS: AMPICILLIN/SULBACTAM SOD 3,000 MG in SODIUM CHLOR 0.9% MINI-B 100 ML IV SCH (10:47)
[2023-10-08] MEDS: POTASSIUM CHLORIDE CRTAB 20 MEQ TABCR PO STA (10:47)
--- NOTE | 2023-10-08 12:13 | Hospitalist Progress Note ---
Date of Service October 08, 2023 Assessment & Plan (1) Gingivostomatitis: Plan: Herpes, coxsackie virus, adenovirus are 3 typical viruses that cause this; the latter 2 viruses typically cause more so "herpangina" picture. The latter 2 viruses do not have any specific treatment. While awaiting HSV PCR testing from the mouth started acyclovir 400mg TID. Day #2 of such. Cont magic mouthwash q6h swish/spit. Cont peridex mouth solution BID, swish/spit. Unfortunately, regardless of which virus is at play, symptoms/signs can last 7- 10 days or more in some cases. Fevers can sometimes last a prolonged period of time if herpes or coxsackie are present. (2) Fever: Plan: 2nd to #1 above? 2nd to dental infection? 2nd to RLL pneumonia as seen on imaging today? combination of the above issues? Very complex case --- would advise Infectious Diseases Consultation on 10/09/23 Respiratory BioFire negative Blood cx's from 10/04 and 10/05 remain negative CTA chest without pneumonia U/a not suspicious for UTI and urine cx negative Lyme screen negative Anaplasmosis & Babesia smears negative CTface shows dental decay and dental caries with periodontal osteolysis with a fractured posterior molar although no abscess. Remains on IV antibiotics. Consider consulting Dr Posey. Patient does have occupational risk for fungal and atypical exposures. 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 He is temporarily here from [place] for a few months. Fungal blood cx was dispatched; fungitell also sent by admitting MD. Does have #1 on physical exam - see #1 for more information. Could fevers be non-infectious (ie - sarcoid)? Does have lymphadenopathy in the axillary region & retroperitoneal region on imaging. Cont unasyn to cover his teeth; this will also cover the RLL infiltrate seen on today's cxr (see below) Cont doxy for empiric tick-borne coverage but my suspicion for tick-borne illness is very low Sent legionella urine ag as legionella can cause diarrhea, pulmonary symptoms, etc -- but this would not cause #1 I had lengthy conversation today with Dr Guzman from rheumatology We discussed whether to pursue an excisional lymph node biopsy in light of his clinical picture and h/o sarcoid Perhaps he has superimposed active sarcoid on top of #1 and #3 I consulted gen surgery; Dr Arambula reviewed all imaging with radiology. Radiology does not feel that any of the lymph nodes seen on imaging are pathologic; most are subcentimeter in size. Thus deferring on biopsy (3) Dental decay: Plan: Consider Dr Posey consultation while here Continue IV unasyn (4) Hypertension: Plan: Continue carvedilol 25 mg twice daily, hydralazine 25 mg 3 times daily, nifedipine 90 mg daily (5) Hyperlipidemia: Plan: Continue fenofibrate (6) Sarcoidosis: Plan: CTA without evidence of PE, pneumonia, or significant hilar lymphadenopathy. Some axillary adenopathy is present - subcm per radiology Retroperitoneal lymphadenopathy also present Sent 1,25-OH vit D level which is elevated in active sarcoid See #2 for discussion about pursuing a lymph node biopsy This is being deferred (7) TYRELL (acute kidney injury): Plan: patient with CKD Cr 1.3 in fall 2022, then 1.5 05/19, then 1.7 about [facility] ago [facility] progressively worsening renal function etiology? HTN nephrosclerosis? due to active sarcoid? other? hydrated overnight and Cr today improved to 1.5 CT a/p no contrast without kidney stones or other renal pathology stop IV fluids repeat BMP am (8) Hypokalemia: Plan: replace PO/IV repeat K in am (9) Chronic radicular low back pain: Plan: left leg L5 or S1 nerve root consider imaging if fevers persist to r/o spinal infection but having little pain in the actual low back (10) Hyponatremia: Plan: mild but improving likely due to volume depletion/insensible losses in setting of fevers repeat BMP am (11) Abnormal CXR: Plan: ?early RLL pneumonia as seen on today's cxr? unasyn / doxy should cover most typicals & atypicals stable o2 sats consider repeat cxr in 48 hours to reassess (12) C. difficile diarrhea: Plan: gene is positive but toxin is negative although toxin is negative he is having SEVERE, COPIOUS, NUMEROUS liquid stools about 10 in the last 24 hours set up for c. diff with multiple IV abx last 5 days would treat - toxin could be falsely negative stool BioFire negative start vanco 125mg PO QID can add bile acid sequestrant if needed for bulking purposes Plan DVT PPx: Heparin Q12H fiance updated extensively at bedside today extensive discussion held with Dr Guzman from rheum (informal); extensive discussion with Dr Arambula from gen surg multiple bedside visits complex care coordination total care time today about 80 minutes Admission and Anticipated Discharge Date Admission Date: October 06, 2023 Subjective patient reports SEVERE diarrhea - pure liquid stools, at least 8x's overnight, and 1-2 times already today no abd pain has severe fecal urgency no vomiting appetite remains poor and it is hard to eat/drink because of mouth sores the magic mouthwash does help and he is trying to drink as much fluid as possible he now has a mod-severe cough, largely dry started sometime yesterday cont with fevers Review of Systems Review of Systems: gen - "I don't feel bad" but the fevers are very annoying and uncomfortable cv - no chest pain or tightness pulm - no dyspnea or RICHARDS GI - severe diarrhea - no dysuria musculo - no myalgias, no joint effusions skin - still no rash any location Physical Exam Physical Exam: gen - WD, WN, obese, nontoxic; but is coughing significantly today mouth - numerous oral ulcers of buccal mucosa, on tongue, and on undersurface of bottom lip, MMM; tonsils 2-3+ b/l and injected; some ulcers also appear to be present posterior pharynx; very poor dentition with evidence of periodontal disease, multiple cracked & decayed teeth, etc neck - no JVD heart - RRR, s1 s2, no murmur lungs - CTA b/l, no wheeze, no obvious rales; coughing abd - soft, no HSM, BS+, NT, ND ext - no edema, pulses 2+ b/l skin - no rash - still nothing involving palms/soles psych - a/o x 3 Results & Data Results & Data Vital Signs (Past 12 Hours) Vital Signs Temp Pulse Resp BP Pulse Ox O2 Del Method 10/08/23 07:31 37.6 C H 78 13 131/81 98 Room Air 10/08/23 05:16 39.6 C H Laboratory Results Laboratory Results - last 24 hr 10/08/23 10/08/23 06:21 06:21 WBC 8.69 RBC 3.61 L Hgb 10.7 L Hct 31.2 L MCV 86.4 MCH 29.6 MCHC 34.3 RDW Std Deviation 46.7 H RDW Coeff of Monica 14.6 H Plt Count 248 MPV 10.5 Immature Gran % (Auto) 1.0 Neut % (Auto) 63.2 Lymph % (Auto) 19.0 [place] % (Auto) 13.3 Eos % (Auto) 3.2 Baso % (Auto) 0.3 Neut # (Auto) 5.48 Lymph # (Auto) 1.65 [place] # (Auto) 1.16 H Eos # (Auto) 0.28 Baso # (Auto) 0.03 Immature Gran # (Auto) 0.09 Sodium 134 L Potassium 3.4 L Chloride 102 Carbon Dioxide 19 L Anion Gap 13 H BUN 11 Creatinine 1.53 H Est Cr Clr Drug Dosing 78.3 Est GFR ( Amer) 61.8 Est GFR (Non-Af Amer) 53.4 BUN/Creatinine Ratio 7.2 L Glucose 103 H Calcium 8.9 Total Bilirubin 0.4 AST 83 H 82 H ALT 58 H Alkaline Phosphatase 61 C-Reactive Protein 23.64 H Total Protein 7.4 Albumin 3.4 Globulin 4.0 Albumin/Globulin Ratio 0.9 Vit D 1,25-Dihyd Total Pending 1,25 Dihydroxy Vit D2 Pending 1,25 Dihydroxy Vit D3 Pending A. phagocytophilum DNA Pending Diagnostic Findings Microbiology 10/06/23 13:19 Blood Aerobic Blood Culture - Preliminary No growth in Aerobic bottle after 48 hours. 10/06/23 13:19 Blood Anaerobic Blood Culture - Preliminary No growth in Anaerobic bottle after 48 hours. 10/06/23 13:19 Blood Aerobic Blood Culture - Preliminary No growth in Aerobic bottle after 48 hours. 10/06/23 13:19 Blood Anaerobic Blood Culture - Final 10/06/23 20:20 Urine,Clean Catch Urine Culture - Final No growth - less than 1,000 colonies/mL. 10/06/23 13:19 Blood Fungal Smear - Final 10/06/23 13:19 Blood Fungal Culture - Preliminary No yeast or fungus isolated - Report 1, Additional Report to Follow. 10/05/23 blood cx's also remain negative Chest X-Ray 10/08/23 12:10 XR chest 2V PA/lateral HISTORY: 47 years-old Male febrile illness; cough acute cough with fever COMPARISON: 10/06/2023 TECHNIQUE: PA and lateral views of the chest FINDINGS: Cardiomediastinal and hilar silhouettes are within normal limits. No pneumothorax, pleural effusion or pulmonary edema. Subsegmental ill-defined right lower lobe opacities are new from prior. Bones appear grossly intact. IMPRESSION: There are new ill-defined right lower lobe airspace opacities suspicious for pneumonia. ACT 112: Negative or not required by law. The above report was generated using voice recognition software. It may contain grammatical, syntax or spelling errors. Electronically signed by: Mohan Paula M.D. 10/08/2023 1:28 PM PG Care Time/CCT Total # of Minutes Spent Total Time Spent with Patient: Total time spent is greater than 50% in coordination of care (as documented) at patient's floor/unit and/or counseling patient: Prolonged Care Time Prolonged Care Time: Yes Total Prolonged Care Time: 80 Coding Level of Care Code 58349 SUB INP/OBS CARE 3/50MIN (25 - SIGNIFICANT, SEPARATELY IDENTIFIABLE ) Diagnoses Gingivostomatitis K05.10 Fever R50.9 Dental decay K02.9 Hypertension I10 Hyperlipidemia E78.5 Sarcoidosis D86.9 TYRELL (acute kidney injury) N17.9 Hypokalemia E87.6 Chronic radicular low back pain M54.16; G89.29 Hyponatremia E87.1 Abnormal CXR R93.89 C. difficile diarrhea A04.72 Additional Codes Prolonged Care Time - Prolonged Care Time: Yes ([id number])
--- NOTE | 2023-10-08 13:29 | XRay Report ---
XR chest 2V PA/lateral HISTORY: 47 years-old Male febrile illness; cough acute cough with fever COMPARISON: 10/06/2023 TECHNIQUE: PA and lateral views of the chest FINDINGS: Cardiomediastinal and hilar silhouettes are within normal limits. No pneumothorax, pleural effusion o r pulmonary edema. Subsegmental ill-defined right lower lobe opacities are new from prior. Bones appe ar grossly intact. IMPRESSION: There are new ill-defined right lower lobe airspace opacities suspicious for pneumonia. ACT 112: Negative or not required by law. The above report was generated using voice recognition software. It may contain grammatical, syntax o r spelling errors. Electronically signed by: Mohan Paula M.D. 10/08/2023 1:28 PM
[2023-10-08] MEDS: BENZONATATE 100 MG CAPSULE PO SCH (13:34)
[2023-10-08 14:16] LABS: Cdiff Toxin B Gene (2yr or >) Positive Cdiff Gene (Neg)
--- NOTE | 2023-10-08 14:36 | Surgery Consultation ---
<Statement entered by Елена Hinds DO - 10/08/23 14:41> I have seen, examined this patient, reviewed his medical history and have reviewed his images with radiology. There are no enlarged/bulky suspicious lymph nodes on physical exam to target for excision and no abnormal or suspicious lymph nodes on imaging. No lymph node excision or sampling recommended. Date of Consultation October 08, 2023 Assessment & Plan (1) Fever: The patient represented to the [facility] ER 10/06/23 with c/o continued fevers and was admitted. On CTA 10/06/23 it was noted by the radiologist Subcentimeter axillary lymph nodes were noted , also on CT of abd/pelvis 10/07/23 they noted : There are subcentimeter lymph nodes in the retroperitoneum which may be reactive. The patient is currently receiving Unasyn IV. General surgery was consulted to see if a biopsy of the lymph nodes is warranted. On exam no cervical, or axillary lymph nodes appreciated, Reviewed current imaging with Jerome Elena PA-C and Radiologist, both agreed that there are no enlarged lymph nodes that are amendable to percutaneous biopsy and feel that the lymph nodes that are mentioned on the CT scans have no acute process. A US of the axilla was order but subsequently canceled d/t radiology feeling that the ultrasound is not necessary to look at the axilla lymph nodes since they were visualized on the recent CT and appear benign. Continue IV antibiotics, Patient may benefit from a oral/facial surgery consult as source of fevers could be his dental infection. General surgery will sign off Call with questions or concerns. History of Present Illness Reason for Consultation: lymph node biopsy Attending Physician: Rodney Herrera MD History of Present Illness Patient is a 47 yo male with PMH sarcoidosis and HTN that presented to the [facility] ER 10/05/23 with co fever, flu like symptoms, and dental pain. On a face CT it was noted IMPRESSION: 1. There is dental decay with dental caries and periodontal osteolysis involving the posterior molars in the mandible bilaterally involving #18, #31 (which is fractured), and to a lesser degree #32. 2. No discrete abscess is identified. 3. There is a mucosal thickening in the inferior aspect of the left maxillary sinus. The remaining paranasal sinuses are within normal limits.He was given IV antibiotics and sent home and PO antibiotics and advised to f/u op with a dentist/ oral surgeon. The patient represented to the [facility] ER 10/06/23 with c/o continued fevers and was admitted. On CTA 10/06/23 it was noted by the radiologist Subcentimeter axillary lymph nodes were noted , also on CT of abd/pelvis 10/07/23 they noted : There are subcentimeter lymph nodes in the retroperitoneum which may be reactive. The patient is currently receiving Unasyn IV. General surgery was consulted to see if a biopsy of the lymph nodes is warranted. Allergies Allergy/AdvReac Type Severity Reaction Status Date / Time No Known Allergies Allergy Unverified 10/05/23 03:19 Home Medications Medication Instructions Recorded Confirmed Type amoxicillin 875 mg-potassium 1 tab PO BID 7 days #14 tabs 10/05/23 10/06/23 Rx clavulanate 125 mg tablet Motrin See Rx Instructions .Route 10/06/23 10/06/23 History .COMPLEX PRN pain/fever Tylenol See Rx Instructions .Route 10/06/23 10/06/23 History .COMPLEX PRN pain/fever carvedilol 25 mg tablet 25 mg PO BID 10/06/23 10/06/23 History ergocalciferol (vitamin D2) 1 cap PO WK 10/06/23 10/06/23 History fenofibrate 54 mg tablet 54 mg PO BID 10/06/23 10/06/23 History hydralazine 25 mg tablet 25 mg PO TID 10/06/23 10/06/23 History nifedipine 90 mg tablet,extended 90 mg PO DAILY 10/06/23 10/06/23 History release 24 hr potassium citrate 10 mEq (1,080 1,080 mg PO BID 10/06/23 10/06/23 History mg) tablet,extended release Patient History Medical History Sarcoidosis Social History Smoking Status: Never smoker Second Hand Exposure: No; Do You Dip or Chew Tobacco: No; Tobacco Cessation Education Requested by Patient: No Hx Alcohol Use: Yes Alcohol type: beer and hard liquor Hx Substance Use: No Preferred Language: [place] Communication Ability: Effective Toy Stuffer Required: No Beliefs That Will Affect Care: None Current Living Situation: Spouse Other Information That Helps Us Care for You: No Feels Safe at Home: Yes Safety Concerns: Feels Safe At This Time Assistive Devices: None Review of Systems Constitutional: + fever Hematologic / Lymphatic: no lymphadenopathy Physical Exam Constitutional: well developed, cooperative and comfortable; no acute distress Respiratory: normal respiratory effort and able to speak in complete sentences; no respiratory distress Lymphatic: no lymphadenopathy Results & Data Vital Signs (Past 12 Hours) Vital Signs Temp Pulse Resp BP Pulse Ox O2 Del Method 10/08/23 07:31 99.7 F H 78 13 131/81 98 Room Air 10/08/23 05:16 103.2 F H Diagnostic Findings [place], [place] [phone] CT Scan Report Patient: DIXON CONCEPCION Admit Date: 10/06/23 MR#: [id number] Address1: [address] [facility] Acct ID:[id number] Address2: [address] Date: 1975 [facility] Zip: [place] [address] Age: 47 Location: 3W Sex: M Room/Bed: [facility] Att Phy: Rodney Herrera MD Diagnosis: FEVER, RIGORS, RISING PCT Kelly Phy: PCP,NO Service Date: 10/07/23 Fam Phy: Interpreting Phy: See Serna [facility] Phy: Oren Hughes MD Ordering Phy: Rodney Herrera MD cc: ~ CT abd pelvis wo con CLINICAL HISTORY: abd pain, elevated Cr; eval stone, etc TECHNIQUE: Helical axial images of the abdomen and pelvis were obtained. Automated dose lowering techniques and/or adjustment according to patient size were utilized for this exam. This exam was performed without intravenous contrast. CT DOSE: 1422.96 mGy.cm COMPARISON: None available at the time of this dictation. FINDINGS: Lower chest: No acute abnormality. Liver: Hepatic steatosis is noted. Gallbladder and biliary tree: No calcified gallstones. Normal caliber wall. No intra- or extrahepatic biliary ductal dilation. Pancreas: Unremarkable, no focal lesions. Spleen: Unremarkable. Adrenals: Thickening of the left adrenal gland is seen. Kidneys and ureters: Unremarkable. Bladder: Unremarkable. Reproductive organs: Unremarkable. Bowel: The appendix is normal. Lymph nodes Retroperitoneal: Subcentimeter lymph nodes are noted. Pelvic: Unremarkable. Mesenteric: Subcentimeter lymph nodes are noted. Peritoneum: Normal. Vessels: Unremarkable. Abdominal wall: Unremarkable. Bones: Degenerative changes in the visualized spine. IMPRESSION: No acute abnormalities. There are subcentimeter lymph nodes in the retroperitoneum which may be reactive. ACT 112: Negative or not required by law. Electronically signed by: See Serna M.D. 10/07/2023 8:13 PM Dictated: 10/07/231814 Transcribed: 10/07/231815 [place], [place] [phone] CT Scan Report Patient: DIXON CONCEPCION Admit Date: 10/06/23 MR#: [id number] Address1: [address] [place] [address] Acct ID:[id number] Address2: [address] Date: 1975 [facility] Zip: [place] [address] Age: 47 Location: ED Sex: M Room/Bed: Att Phy: Diagnosis: FEVER Kelly Phy: PCP,NO Service Date: 10/06/23 Fam Phy: Interpreting Phy: See Serna MDAdmit Phy: Ordering Phy: Sue Jones DO cc: ~ CT angio chest PE protocol CLINICAL HISTORY: PE TECHNIQUE: Multidetector row helical CT of the chest was performed with angiographic protocol. Coronal and sagittal reformations were obtained. Coronal and sagittal MIPS were obtained from the axial data set and were submitted for review. Automated dose lowering techniques and/or adjustment according to patient size were utilized for this exam. CT DOSE: 853.01 mGy.cm Comparison: Comparison is made to CT chest 10/05/2023 FINDINGS: Lungs and pleura: Normal. Heart and pericardium: Heart size is normal. No pericardial effusion. Vessels: No evidence of pulmonary embolism. Mediastinum and marcia: Subcentimeter lymph nodes are seen. Chest wall and lower neck: Subcentimeter axillary lymph nodes noted. Abdomen: Unremarkable. Bones: Unremarkable. IMPRESSION: No acute abnormality and in particular no evidence of pulmonary embolus. Axillary lymph nodes are nonspecific and may be reactive. ACT 112: Negative or not required by law. Electronically signed by: See Serna M.D. 10/06/2023 11:00 AM Dictated: 10/06/23 1058 Transcribed: 10/06/23 1058 [facility], [place] [phone] CT Scan Report Patient: DIXON CONCEPCION Admit Date: 10/05/23 MR#: [id number] Address1: [address] [facility] [address] Acct ID:[id number] Address2: [address] Date: 1975 [facility] Zip: [place] [address] Age: 47 Location: ED Sex: M Room/Bed: Att Phy: Diagnosis: SWEATING, COLD, TEMP OF 100, Kelly Phy: PCP,NO Service Date: 10/05/23 [facility] Phy: Interpreting Phy: Anthony Harp MDAdmit Phy: Ordering Phy: Luz Elena Szymanski PA-C cc: ~ Exam(s): CT FACIAL With Contrast IV Amt: 94 ml optiray 320 EXAM: CT Maxillofacial With Intravenous Contrast CLINICAL HISTORY: Reason for exam: fever, right lower dental infection. TECHNIQUE: Axial computed tomography images of the face with intravenous contrast. CTDI is 36.33 mGy and DLP is 720.73 mGy-cm. Automated exposure control was utilized for the study. A dose lowering technique was utilized adhering to the principles of ALARA. CONTRAST: 94 mL of Optiray 320 COMPARISON: No relevant prior studies available. FINDINGS: Bones/joints: See below. Soft tissues: Unremarkable. Orbits: Unremarkable. Sinuses: There is a mucosal thickening in the inferior aspect of the left maxillary sinus. The remaining paranasal sinuses are within normal limits. No air-fluid levels. Dental: There is dental decay with dental caries and periodontal osteolysis involving the posterior molars in the mandible bilaterally involving #18, #31 which is fractured, and to a lesser degree #32. Other findings: No discrete abscess is identified. IMPRESSION: 1. There is dental decay with dental caries and periodontal osteolysis involving the posterior molars in the mandible bilaterally involving #18, #31 (which is fractured), and to a lesser degree #32. 2. No discrete abscess is identified. 3. There is a mucosal thickening in the inferior aspect of the left maxillary sinus. The remaining paranasal sinuses are within normal limits. Electronically signed by: Anthony Harp MD 10/05/23 05:06 AM Dictated: 10/05/23 0506 Transcribed: 10/05/23 0506 PG Care Time/CCT Total # of Minutes Spent Total Time Spent with Patient: Total time spent is greater than 50% in coordination of care (as documented) at patient's floor/unit and/or counseling patient: Coding Level of Care Code 82547 IN/OBS CONSULT LVL 2,35M Diagnoses Fever R50.9
[2023-10-08 14:46] LABS: Adenovirus F 40/41 PCR Not Detected (NotDetected); Astrovirus PCR Not Detected (NotDetected); Campylobacter PCR Not Detected (NotDetected); Cryptosporidium PCR Not Detected (NotDetected); Cyclospora cayetanensis PCR Not Detected (NotDetected); Entamoeba histolytica PCR Not Detected (NotDetected); Enteroaggregative E.coli(EAEC) Not Detected (NotDetected); Enteropathogenic E.coli (EPEC) Not Detected (NotDetected); Enterotoxigenic E.coli (ETEC) Not Detected (NotDetected); Giardia lamblia PCR Not Detected (NotDetected); Norovirus GI/GII PCR Not Detected (NotDetected); Plesiomonas shigelloides PCR Not Detected (NotDetected); Rotavirus A PCR Not Detected (NotDetected); Salmonella PCR Not Detected (NotDetected); Sapovirus PCR Not Detected (NotDetected); Shiga-like Toxin E.coli (STEC) Not Detected (NotDetected); Shigella/Enteroinvasive E.coli Not Detected (NotDetected); Vibrio cholerae PCR Not Detected (NotDetected); Vibrio species PCR Not Detected (NotDetected); Yersinia enterocolitica PCR Not Detected (NotDetected)
[2023-10-08 15:13] LABS: Appearance Urine Clear (Clear); Bacteria Urine Automated None Seen (None Seen); Bilirubin Urine Negative (Negative); Blood Urine Negative (Negative); Cast Urine Automated 0-2 /lpf (0-2); Color Urine Yellow; Epithelial Cell Urine Auto 0-2 /hpf (0-2); Glucose Urine UA Trace (Negative); Ketones Urine Trace (Negative); Leukocyte Esterase Urine Negative (Negative); Nitrite Urine Negative (Negative); Protein Urine 1+ (Negative); RBC Urine Automated 0-2 /hpf (0-2); Specific Gravity Urine 1.012 (1.000-1.030); Urobilinogen Urine Negative (Negative); WBC Urine Automated 0-5 /hpf (0-5); pH Urine 6.5 (4.5-7.5)
[2023-10-08 15:41] LABS: Cdiff Antigen Positive; Cdiff Toxin A+B Negative Cdiff Toxin (Negative)
[2023-10-08] MEDS: CHERRY SYRUP 5 ML UDP PO SCH (20:46)
[2023-10-08] MEDS: VANCOMYCIN HCL 125 MG/2.5ML SOLN PO SCH (20:46)
[2023-10-09 09:29] LABS: BUN Creatinine Ratio 7.7 (10-20); Calcium 9.8 mg/dl (8.6-10.3); Creatinine Clr Calc Pharmacy 83.8 ml/min; Est GFR (African American) 67.1 ml/min; Est GFR (Non-African American) 57.9 ml/min; Magnesium 1.9 mg/dl (1.7-2.4); Potassium 3.5 mmol/L (3.5-5.1)
--- NOTE | 2023-10-09 21:25 | Discharge Summary ---
Discharge Summary Date of Service October 09, 2023 Notes For Next Care Provider Discharged with -valacyclovir po for gingivostomatitis, possible HSV vs coxsackievirus, viral tests pending -amox-clav for dental infection, possible RLL pneumonia -oral vancomycin for possible C. diff diarrhea - though toxin was negative. Had copious diarrhea. tickborne labs pending blood cultures pending but NGTD Medication Changes From Visit added the above antimicrobials and advised probiotic Admission HPI Per Admitting Provider Renato is seen at the bedside He reprots he is hwere for work temporarily from [place] Symptoms started with 'just feeling shaky and weak' and more fatigued than normal like he hadnt slept even though he had. Was in the care and 'was just burning up, sweating, soaking rags from wiping my head and face.' and then suddenly felt absolutely freezing and was shaking uncontrollably and big muscle shaking movements, not like shivering but bigger (rigors). Alternating soaking sweats and shivering with fevers and could not sleep. Came to the ER yesterday and was found to have some dental caries on CT, has a history of a cracked tooth on the lower R side, started on Augmentin and was d/lakshmi home. Continue to have documented fevers 100-104*F overnight intermittently. Took his first dose of Augmentin yesterday around 5pm. Recieved first dose of abx while in the ER yesterday morning. Took last dose 9am this morning Still feeling poorly. Alternating tylenol 325mg every few hours with ibuprofen 400mg every few hours. Seems to help, but continues to have fevers. This AM severe shaking chills started again, came back to the ER 99.6-104.5 higher in AM Endorses a little blurry vision with high fever that improves between fever spikes. NO headache, but some head pressure radiation when coughing He endorses a 'slight off and on cough'. This is new in the last week. No sputum production. Denies noticable dyspnea, sometimes a little fatigued/SoB trying to work. Endorses one transient episode of e pitgastric pain but not chest pain. Has been there 3-4. Not worse with exertion. Back pain. LLQ back pain L sided. Feels a lump at L1-L3. Recently also with a second pain going down his leg and toe is now numb. No abdominal pain. Mild nausea with fevers twice, no vomiting but did gag once or twice when coughing. Left leg numbness/tingling worse with piriformis syndrome. No other numbness/tingling other mary some slight intermittent tingling on the dorsal L hand for ~3-4months worse when sleep. Denies rash No sensinsitivity to lighth or sound. 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 Generally coming for an assessment once its found No international travel No history of immune suppression or immune problems. Endorses preDM, sarcoidosis, sleep apnea, HTN Meds: carvedilol 25mg BID, hydralazine 25mg TID, nifedipine 90mg once daily, potassiumcitrate 10meq twice daily, fenofibrate 54mg 2 tablets daily, and ergocalciferol weekly Father had heart disease, DM No tobacco products or vaping. ETOH 3 beers a day.everal consequtive etoh free days this past month, no etoh withdrawal. No recreational drugs NKDA Full Code. Surrogate DM sister Shilpa Principal Dx & Hospital Course #1 = Principal Diagnosis (1) Sepsis: Sepsis (present on admission) related to gingivostomatitis from suspected viral infection, superimposed bacterial dental infection and/or possible RLL pneumonia, severe diarrhea possibly C. diff associated diarrhea. Initial issue seems to have been the mouth ulcers with additional complications following. Treated as documented below, fever resolved for greater than 24h and leukocytosis resolved. Mouth ulcer pain improved and tolerating soups for oral intake. (2) Gingivostomatitis: Herpes, coxsackie virus, adenovirus are 3 typical viruses that cause this; the latter 2 viruses typically cause more so "herpangina" picture. The latter 2 viruses do not have any specific treatment. While awaiting HSV PCR testing from the mouth we are treating with valacyclovir. Ulcers and pain are improving and he is tolerating oral intake well at this time. (3) Fever: Details of extensive fever workup: Respiratory BioFire negative Blood cx's from 10/04 and 10/05 remain negative CTA chest without pneumonia U/a not suspicious for UTI and urine cx negative Lyme screen negative Anaplasmosis & Babesia smears negative CTface shows dental decay and dental caries with periodontal osteolysis with a fractured posterior molar although no abscess. Follow up CXR with possible RLL pulmonary infiltrate Sent legionella urine ag as legionella can cause diarrhea, pulmonary symptoms, etc -- but this would not cause #1 legionella urine antigen and tick-borne labs are still pending Dr. Herrera had lengthy conversation with Dr Guzman from rheumatology 10/07 discussed whether to pursue an excisional lymph node biopsy in light of his clinical picture and h/o sarcoid consulted gen surgery; Dr Arambula reviewed all imaging with radiology. Radiology does not feel that any of the lymph nodes seen on imaging are pathologic; most are subcentimeter in size. Thus deferring on biopsy Nodes may be reactive in nature and/or related to underlying sarcoidosis. He is clinically improving and feels well. (4) C. difficile diarrhea: gene is positive but toxin is negative although toxin is negative he was having SEVERE, COPIOUS, NUMEROUS liquid stools would treat - toxin could be falsely negative stool BioFire negative vanco 125mg PO QID x 10 days and advised probiotic improved (5) Dental decay: He will follow up with dentist - gave contact info for local free clinic and private practice dental clinic (6) Sarcoidosis: CTA without evidence of PE, pneumonia, or significant hilar lymphadenopathy. Some axillary adenopathy is present - subcm per radiology Retroperitoneal lymphadenopathy also present Sent 1,25-OH vit D level which is elevated in active sarcoid - pending See #2 for discussion about pursuing a lymph node biopsy This is being deferred (7) TYRELL (acute kidney injury): Progression of CKD stage 3 versus TYRELL on CKD Cr 1.3 in fall 2022, then 1.5 05/19, then 1.7 about [facility] ago [facility]) Improved to 1.4 after IV fluids and treatment of infections He [facility] 10/08/23 06:21 10/09/23 06:51 (8) Hypertension: Continue carvedilol 25 mg twice daily, hydralazine 25 mg 3 times daily, nifedipine 90 mg daily (9) Hyperlipidemia: Continue fenofibrate (10) Hypokalemia: replaced, resolved (11) Chronic radicular low back pain: left leg L5 or S1 nerve root consider imaging if fevers persist to r/o spinal infection but having little pain in the actual low back (12) Hyponatremia: mild, resolved Updated Medication List Medication Instructions Recorded Confirmed Type Tylenol See Rx Instructions .Route 10/06/23 10/06/23 History .COMPLEX PRN pain/fever carvedilol 25 mg tablet 25 mg PO BID 10/06/23 10/06/23 History ergocalciferol (vitamin D2) 1 cap PO WK 10/06/23 10/06/23 History fenofibrate 54 mg tablet 54 mg PO BID 10/06/23 10/06/23 History hydralazine 25 mg tablet 25 mg PO TID 10/06/23 10/06/23 History nifedipine 90 mg tablet,extended 90 mg PO DAILY 10/06/23 10/06/23 History release 24 hr potassium citrate 10 mEq (1,080 1,080 mg PO BID 10/06/23 10/06/23 History mg) tablet,extended release amoxicillin 875 mg-potassium 1 tab PO BID #11 tabs 10/09/23 Rx clavulanate 125 mg tablet valacyclovir 1 gram tablet 1,000 mg PO Q8H 5 days #15 tabs 10/09/23 Rx vancomycin 125 mg capsule 125 mg PO Q6H #34 caps 10/09/23 Rx Hospital Stay Data Consultations 10/08/23 12:12 Consult General Surgery Routine Diagnostic Imagining Performed 10/06/23 09:55 CT angio chest PE protocol Stat 10/07/23 11:59 CT abd pelvis wo con Routine Chest CTA 10/06/23 09:55 CT angio chest PE protocol CLINICAL HISTORY: PE TECHNIQUE: Multidetector row helical CT of the chest was performed with angiographic protocol. Coronal and sagittal reformations were obtained. Coronal and sagittal MIPS were obtained from the axial data set and were submitted for review. Automated dose lowering techniques and/or adjustment according to patient size were utilized for this exam. CT DOSE: 853.01 mGy.cm Comparison: Comparison is made to CT chest 10/05/2023 FINDINGS: Lungs and pleura: Normal. Heart and pericardium: Heart size is normal. No pericardial effusion. Vessels: No evidence of pulmonary embolism. Mediastinum and marcia: Subcentimeter lymph nodes are seen. Chest wall and lower neck: Subcentimeter axillary lymph nodes noted. Abdomen: Unremarkable. Bones: Unremarkable. IMPRESSION: No acute abnormality and in particular no evidence of pulmonary embolus. Axillary lymph nodes are nonspecific and may be reactive. ACT 112: Negative or not required by law. Electronically signed by: See Serna M.D. 10/06/2023 11:00 AM Abdomen/Pelvis CT 10/07/23 11:59 CT abd pelvis wo con CLINICAL HISTORY: abd pain, elevated Cr; eval stone, etc TECHNIQUE: Helical axial images of the abdomen and pelvis were obtained. Automated dose lowering techniques and/or adjustment according to patient size were utilized for this exam. This exam was performed without intravenous contrast. CT DOSE: 1422.96 mGy.cm COMPARISON: None available at the time of this dictation. FINDINGS: Lower chest: No acute abnormality. Liver: Hepatic steatosis is noted. Gallbladder and biliary tree: No calcified gallstones. Normal caliber wall. No intra- or extrahepatic biliary ductal dilation. Pancreas: Unremarkable, no focal lesions. Spleen: Unremarkable. Adrenals: Thickening of the left adrenal gland is seen. Kidneys and ureters: Unremarkable. Bladder: Unremarkable. Reproductive organs: Unremarkable. Bowel: The appendix is normal. Lymph nodes Retroperitoneal: Subcentimeter lymph nodes are noted. Pelvic: Unremarkable. Mesenteric: Subcentimeter lymph nodes are noted. Peritoneum: Normal. Vessels: Unremarkable. Abdominal wall: Unremarkable. Bones: Degenerative changes in the visualized spine. IMPRESSION: No acute abnormalities. There are subcentimeter lymph nodes in the retroperitoneum which may be reactive. ACT 112: Negative or not required by law. Electronically signed by: See Serna M.D. 10/07/2023 8:13 PM Chest X-Ray 10/08/23 12:10 XR chest 2V PA/lateral HISTORY: 47 years-old Male febrile illness; cough acute cough with fever COMPARISON: 10/06/2023 TECHNIQUE: PA and lateral views of the chest FINDINGS: Cardiomediastinal and hilar silhouettes are within normal limits. No pneumothorax, pleural effusion or pulmonary edema. Subsegmental ill-defined right lower lobe opacities are new from prior. Bones appear grossly intact. IMPRESSION: There are new ill-defined right lower lobe airspace opacities suspicious for pneumonia. ACT 112: Negative or not required by law. The above report was generated using voice recognition software. It may contain grammatical, syntax or spelling errors. Electronically signed by: Mohan Paula M.D. 10/08/2023 1:28 PM Pending Results Patient Have Any Pending Studies at Discharge: Yes Discharge Instructions Given to Patient (Per Discharging Provider) You were treated for fevers - probably started with mouth ulcers (from herpes virus (cold sores) or coxsackievirus), possible bacterial dental infection or pneumonia, diarrhea I prescribed: valacyclovir - this will treat herpes related mouth ulcers - viral testing is pending amoxicillin-clavulanate - will treat bacterial mouth/dental infection or pneumonia oral vancomycin - to treat possible C. difficile associated diarrhea its a good idea to take a probiotic for two weeks - these are available over the counter - will help resolve the diarrhea follow a soft/liquid diet until your mouth is less sore you can make "magic mouthwash" for mouth pain by mixing a small amount of maalox with liquid (children's) benadryl/diphenhydramine - swish it in mouth and spit it out acetaminophen is ok to take but avoid ibuprofen/motrin/advil or naproxen/aleve because these can worsen your kidney function return to the ED or be seen in urgent care if you are getting worse, for example recurrent fevers, worsening mouth ulcers, abdominal pain, worsening diarrhea it is a good idea to see a dentist soon. try the free clinic, I know that [facility] is also accepting new patients in the area [facility] are home in [place] I will call you if any of the pending blood tests turn positive Total Time Total Time Spent Total Time Spent (In Minutes): 45 minutes spent reviewing labs, vitals, chart notes, oracle adf consultant recommendations, examining and counseling patient, discharge prescriptions and instructions, discussion with care coordination documentation Coding Level of Care Code 44578 INP/OBS DISCH >30 MIN Diagnoses Sepsis A41.9 Gingivostomatitis K05.10 Fever R50.9 C. difficile diarrhea A04.72 Dental decay K02.9 Sarcoidosis D86.9 TYRELL (acute kidney injury) N17.9 Hypertension I10 Hyperlipidemia E78.5 Hypokalemia E87.6 Chronic radicular low back pain M54.16; G89.29 Hyponatremia E87.1
[2023-10-10 19:17] LABS: Fungitell (1-3)-B-D-Glucan <31 pg/mL
[2023-10-10 22:52] LABS: HSV Type 1 DNA Detected (Not Detected); HSV Type 2 DNA Not Detected (Not Detected)
[2023-10-11 02:27] LABS: Babesia microti DNA Not Detected (Not Detected)
[2023-10-13 16:12] LABS: Vitamin D 1,25 140 pg/mL (18-72); Vitamin D2,1,25 126 pg/mL; Vitamin D3,1,25 14 pg/mL
== END 2023-10-09 15:55 | disposition home or self-care (01) | DRG 871 ==
LOC: ED 05:41 → 3W 12:56 → SUATTDRO 12:56 → 3W 14:08